=== PATIENT | male | born 1970 | race African-American/Black ===

== ENCOUNTER 2019-03-27 05:19 | Emergency (ER) | payer MEDICAID ==
[~2019-03-27] VITALS: Ht 185.4 cm; Wt 95.5 kg
[2019-03-27 07:00] VITALS: BP 124/79
== END 2019-03-27 07:16 | disposition home or self-care (01) ==
LOC: EMS 05:21
DX: H10.89 Other conjunctivitis (principal); F17.210 Nicotine dependence, cigarettes, uncomplicated